=== PATIENT | female | born 1935 | race African-American/Black ===

== ENCOUNTER 2019-05-13 19:05 | Emergency (ER) | payer MEDICARE ==
[~2019-05-13] VITALS: Ht 162.6 cm; Wt 90.9 kg
[2019-05-13] MEDS ORDERED: SODIUM BICARBONATE [ADULT] 8.4% 50 MEQ/50 ML SYRINGE IVP ONE (19:06)
[2019-05-13] MEDS ORDERED: 0.9% SODIUM CHLORIDE 10 ML SYRINGE IVP ONE (19:06)
[2019-05-13] MEDS ORDERED: EPINEPHrine 1:10,000 [1 MG/10 ML] SYRINGE IVP ONE (19:06)
[2019-05-13] MEDS ORDERED: DEXTROSE 50%-WATER 25 GM/50 ML SYRINGE IVP ONE (19:06)
[2019-05-13 19:47] VITALS: BP 0/0
== END 2019-05-13 23:00 | disposition expired ==
LOC: EMS 19:05
DX: I46.9 Cardiac arrest, cause unspecified (principal)
CPT/HCPCS: 82962; 92950; 99291; J0171; J3490